=== PATIENT | female | born 1990 | race African-American/Black ===

== ENCOUNTER 2020-11-12 16:53 | Inpatient (IN) | payer MEDICAID, SELFPAY ==
[2020-11-12] VITALS (7 sets, daily range): BP systolic 114–130; BP diastolic 77–97; PULSE 82–124; RESP 16–18; TEMP 35.9–36.8; O2SAT 92–100; BMI 22.4; BMI 20.6
--- NOTE | 2020-11-12 17:38 | EKG12_ITS ---
Test Reason : Blood Pressure : / mmHG Vent. Rate : 096 BPM Atrial Rate : 096 BPM P-R Int : 124 ms QRS Dur : 078 ms QT Int : 358 ms P-R-T Axes : 041 064 059 degrees QTc Int : 452 ms Normal sinus rhythm Normal ECG Confirmed by MAY RUIZ, JAMILAH ([id number]), assistant editor CHARISSE MISHRA ([id number]) on 11/16/2020 10:03:27 AM Referred By: ELISE Confirmed By:JAMILAH OLVERA MD
--- NOTE | 2020-11-12 17:38 | CT_ITS ---
STUDY: CT ABDOMEN AND PELVIS WITH CONTRAST REASON FOR EXAM: Female, 30 years old. epigastric abdominal pain RADIATION DOSAGE (If Supplied By Facility): CTDIvol = ( 11.81 ) mGy, DLP = ( 351.05 ) mGycm TECHNIQUE: Transaxial images were obtained from the dome of the diaphragm to the symphysis pubis without oral contrast. ISOVUE 300 100 ML was administered. Sagittal and coronal images were reconstructed. Individualized dose optimization techniques were used for this CT. COMPARISON: None. FINDINGS: The visualized lung bases are unremarkable. The visualized portions of the heart are within normal limits. Liver is enlarged and diffusely fatty infiltrated without mass or bile duct dilatation.. Normal gallbladder and extrahepatic biliary system. Normal spleen. Pancreas is normal size. There are multiple tiny calcifications which may be consistent with chronic pancreatitis Normal bilateral adrenal glands. Normal right kidney. Normal left kidney. Concentric thickening of the elmore of stomach and duodenum consistent with nonspecific gastroduodenitis possibly due to peptic ulcer disease. Nonspecific ileus. No evidence for small bowel obstruction.. Minor diverticular changes of colon without evidence for acute diverticulitis. No evidence for acute appendicitis. Normal abdominal aorta. Normal inferior vena cava. Normal retroperitoneum. Incompletely distended thick-walled bladder likely of no significance. Cystic changes in the left ovary which may be further assessed with pelvic sonogram if indicated Small fat-containing left inguinal hernia.. Normal osseous structures. CT/Abdomen/Pelvis W IV Cont ONLY IMPRESSION: Enlarged fatty infiltrated liver. Findings consistent with nonspecific gastroduodenitis possibly due to peptic ulcer disease.'' Findings consistent with chronic pancreatitis without definitive evidence for acute pancreatitis Other findings as above Electronically Signed: Jitendra Kwong MD at 19:32 EDT , Service support ,
[2020-11-12] MEDS: 0.9% Normal Saline 1,000 ML 1000 ML IV (17:52)
[2020-11-12] MEDS: Ondansetron 4 MG/2 ML Vial IV (17:52)
[2020-11-12] MEDS: morphine 8 MG/ML Syringe 6 MG IV (17:53)
--- NOTE | 2020-11-12 18:12 | EX.ED.SAOD ---
HPI History of Present Illness Chief Complaint: Substance Abuse Informant: patient Associated Symptoms Associated Symptoms: Positive for vomiting* Narrative Narrative: Patient is a 30-year-old female presenting for concern for pancreatitis as well as for alcohol detox. Patient states earlier today she was at [facility] where she was medically cleared and went to [facility] for alcohol Detox. Patient had 2 vodka drinks today. Patient states she was told to come to our emergency room for detox because she is also complaining of abdominal pain that she associates with her pancreatitis. Patient states she gets chronic abdominal pain and this is what causes her to drink. She states she goes through binging where she will drink as a way to cope with the pain. She states it is likely that helps. Patient states she is been drinking shots of vodka daily for the past few days. She would not quantify exactly how much she drinks a day. She states she will then go a couple weeks without drinking and then binge again. Patient had associated nausea and vomiting but no blood in her vomit. She has had okay bowel movements with no black or blood in. She is never seen GI doctor. Patient says she does have a history of seizure. Patient is not sure if they were alcohol withdrawal seizures or another kind. She notes she is on Keppra daily. Patient did note that she recently had Covid but she does not currently have any symptoms associated with this. PFSH PFSH Medical History Alcohol abuse Anxiety Asthma Bipolar disorder Chronic pain GERD (gastroesophageal reflux disease) Marijuana smoker Pancreatitis Seizures Smoker Home Medications albuterol 1 - 2 mcg INHALATION PRN PRN 11/12/20 [History Last Taken 11/11/20] levetiracetam [Keppra] 500 mg PO BID 11/12/20 [History Last Taken 11/12/20] Allergy/AdvReac Type Severity Reaction Status Date / Time famotidine [From Pepcid] Allergy Other Verified 11/12/20 16:56 fentanyl Allergy Other Verified 11/12/20 16:56 fish oil Allergy Other Verified 11/12/20 16:56 haloperidol [From Haldol] Allergy Other Verified 11/12/20 16:56 nut - unspecified Allergy Anaphylaxis Verified 11/12/20 16:56 vitamin E (d-alpha Allergy Other Verified 11/12/20 16:56 tocopherol) Surgical History (Updated 11/12/20 @ 17:38 by Alanis Garcia) Hx of cholecystectomy Social History Smoking Status: Current every day smoker tobacco type: cigarettes ROS ROS ED Constitutional Constitutional ED: Denies chills or fever(s) Eyes Eyes: Denies change in vision ENT ENT ED: Denies ear pain or rhinorrhea Cardiovascular Cardiovascular: Denies chest pain Respiratory/Chest Respiratory/Chest: Denies cough or dyspnea Gastrointestinal Gastrointestinal: Reports abdominal pain, nausea and vomiting; Denies constipation or diarrhea Genitourinary Genitourinary ED: Denies dysuria Musculoskeletal Musculoskeletal: Denies arthralgias or myalgias Integumentary Denies rash Neurologic Neurologic: Denies headache(s) or weakness Psychiatric Psychiatric: Denies anxiety or depression EXAM Physical Exam Const Vital Signs: 11/12/20 16:56 11/12/20 19:00 Temperature 96.7 F L 97 F L Temperature Source Temporal Temporal Pulse Rate 124 H 100 Respiratory Rate 18 18 Blood Pressure 130/87 H 130/97 H Blood Pressure Mean 101 108 Pulse Ox 95 100 Oxygen Delivery Method Room Air Room Air Positive well nourished and well developed General Appearance ED: well developed HEENT Reports moist mucous membranes atraumatic Eyes PERRL and EOMs intact bilaterally Eyes Narrative: Mild periorbital edema noted Neck supple and no JVD Chest Wall inspection of chest normal Resp normal respiratory effort and clear to auscultation bilaterally Cardio regular rate, regular rhythm and no murmurs GI soft to palpation, non-distended and no masses Palpation: tender epigastric Back/Spine no CVA tenderness Extremity General Extremety ED: Negative for edema or tenderness General Extremity: Negative for edema Neuro oriented x3, CN's II-XII intact bilaterally and no sensory deficits noted Sensorium / Orientation: alert Psych mental status grossly normal and thought process normal Skin Lesions: no lesions Rashes: no rashes MDM MDM MDM Narrative Medical decision making narrative: Patient evaluated for worsening epigastric abdominal pain as well as alcohol dependency and desire for detox. She appears nontoxic. Vital signs are significant for tachycardic however patient does not appear to be in any significant distress. Patient is given IV fluids, Zofran and morphine with some symptom control. She has improvement of her tachycardia. Work-up does show leukopenia however her hemoglobin is normal. Her platelets are 157, normal. BMP is grossly normal. She does have an elevated AST with normal ALT. This is likely from her alcohol abuse. Her alkaline phosphatase is also mildly elevated at 166. Lipase is normal. CT of abdomen pelvis obtained which shows findings consistent with chronic pancreatitis but no acute pancreatitis. She does have nonspecific gastroduodenitis. Patient is given a GI cocktail, IV Protonix that she is allergic to Pepcid as well as oral oxycodone for her pain. Patient does have a significantly elevated alcohol level however patient does not appear to have any type of mental depression from this alcohol intoxication. She will be admitted for further management of her gastroduodenitis as well as evaluation for inpatient detox. Patient is hemodynamically stable for the [facility] floor at time of disposition. She is agreeable to this plan of care. Lab Data Attestation: I reviewed the patient's lab results. Labs: Laboratory Results - last 24 hr 11/12/20 11/12/20 11/12/20 17:50 17:50 17:50 WBC 3.4 L RBC 3.60 L Hgb 12.5 Hct 35.8 L MCV 99.4 H MCH 34.7 H MCHC 34.9 RDW Std Deviation 69.7 H RDW Coeff of Jessi 19.1 H Plt Count 157 MPV 8.9 Immature Gran % (Auto) 0.600 Neut % (Auto) 30.7 L Lymph % (Auto) 59.1 H [place] % (Auto) 7.8 Eos % (Auto) 0.6 Baso % (Auto) 1.2 H Absolute Neuts (auto) 1.0 L Absolute Lymphs (auto) 1.98 Nucleated RBC % 0.6 Platelet Estimate ADEQUATE RBC Morphology N CHROM Anisocytosis 1+ Macrocytosis 1+ Ovalocytes RARE Sodium 139 Potassium 3.2 L Chloride 99 Carbon Dioxide 26.0 Anion Gap 14 BUN 8 Creatinine 0.54 L Estim Creat Clear Calc 137.08 Est GFR (MDRD) Af Amer 170 Est GFR (MDRD) Non-Af 141 BUN/Creatinine Ratio 14.8 Glucose 90 Lactic Acid Cancelled Calcium 8.1 L Magnesium Total Bilirubin 0.60 AST 217 H ALT 53 Alkaline Phosphatase 166 H Total Protein 8.0 Albumin 3.6 Globulin 4.4 H Albumin/Globulin Ratio 0.8 L Lipase 82 Serum , Qual Urine Color Urine Clarity Urine pH Ur Specific [place] Urine Protein Urine Glucose (UA) Urine Ketones Urine Occult Blood Urine Nitrite Urine Bilirubin Urine Urobilinogen Ur Leukocyte Esterase Urine RBC Urine WBC Ur Squamous Epith Cells Urine Bacteria Urine Mucus Urine Opiates Screen Urine Methadone Screen Ur Barbiturates Screen Ur Phencyclidine Scrn Ur Amphetamines Screen U Methamphetamin-MDMA U Benzodiazepines Scrn Urine Cocaine Screen U Cannabinoids Screen Ur Drug Screen Comment Ethyl Alcohol 11/12/20 11/12/20 11/12/20 17:50 17:50 17:50 WBC RBC Hgb Hct MCV MCH MCHC RDW Std Deviation RDW Coeff of Jessi Plt Count MPV Immature Gran % (Auto) Neut % (Auto) Lymph % (Auto) [place] % (Auto) Eos % (Auto) Baso % (Auto) Absolute Neuts (auto) Absolute Lymphs (auto) Nucleated RBC % Platelet Estimate RBC Morphology Anisocytosis Macrocytosis Ovalocytes Sodium Potassium Chloride Carbon Dioxide Anion Gap BUN Creatinine Estim Creat Clear Calc Est GFR (MDRD) Af Amer Est GFR (MDRD) Non-Af BUN/Creatinine Ratio Glucose Lactic Acid Calcium Magnesium 1.7 Total Bilirubin AST ALT Alkaline Phosphatase Total Protein Albumin Globulin Albumin/Globulin Ratio Lipase Serum , Qual NEGATIVE Urine Color Urine Clarity Urine pH Ur Specific [place] Urine Protein Urine Glucose (UA) Urine Ketones Urine Occult Blood Urine Nitrite Urine Bilirubin Urine Urobilinogen Ur Leukocyte Esterase Urine RBC Urine WBC Ur Squamous Epith Cells Urine Bacteria Urine Mucus Urine Opiates Screen Urine Methadone Screen Ur Barbiturates Screen Ur Phencyclidine Scrn Ur Amphetamines Screen U Methamphetamin-MDMA U Benzodiazepines Scrn Urine Cocaine Screen U Cannabinoids Screen Ur Drug Screen Comment Ethyl Alcohol 557.0 H* 11/12/20 11/12/20 11/12/20 19:25 19:25 19:28 WBC RBC Hgb Hct MCV MCH MCHC RDW Std Deviation RDW Coeff of Jessi Plt Count MPV Immature Gran % (Auto) Neut % (Auto) Lymph % (Auto) [place] % (Auto) Eos % (Auto) Baso % (Auto) Absolute Neuts (auto) Absolute Lymphs (auto) Nucleated RBC % Platelet Estimate RBC Morphology Anisocytosis Macrocytosis Ovalocytes Sodium Potassium Chloride Carbon Dioxide Anion Gap BUN Creatinine Estim Creat Clear Calc Est GFR (MDRD) Af Amer Est GFR (MDRD) Non-Af BUN/Creatinine Ratio Glucose Lactic Acid 2.7 H* Calcium Magnesium Total Bilirubin AST ALT Alkaline Phosphatase Total Protein Albumin Globulin Albumin/Globulin Ratio Lipase Serum , Qual Urine Color Yellow Urine Clarity Sl. Cloudy Urine pH 6.5 Ur Specific [place] 1.015 Urine Protein 30 H Urine Glucose (UA) Normal Urine Ketones Negative Urine Occult Blood 25 H Urine Nitrite Positive H Urine Bilirubin 1 H Urine Urobilinogen 8 H Ur Leukocyte Esterase 100 H Urine RBC 0 SEEN Urine WBC 25-50 SEEN Ur Squamous Epith Cells 0-5 SEEN Urine Bacteria 3+ Urine Mucus 0 SEEN Urine Opiates Screen POSITIVE H Urine Methadone Screen NEGATIVE Ur Barbiturates Screen NEGATIVE Ur Phencyclidine Scrn NEGATIVE Ur Amphetamines Screen NEGATIVE U Methamphetamin-MDMA NEGATIVE U Benzodiazepines Scrn NEGATIVE Urine Cocaine Screen NEGATIVE U Cannabinoids Screen NEGATIVE Ur Drug Screen Comment Ethyl Alcohol Radiography Diagnostic Testing: Radiology Impression Abdomen/Pelvis CT 11/12/20 17:38 IMPRESSION: Enlarged fatty infiltrated liver. Findings consistent with nonspecific gastroduodenitis possibly due to peptic ulcer disease.'' Findings consistent with chronic pancreatitis without definitive evidence for acute pancreatitis Other findings as above Electronically Signed: Jitendra Kwong MD at 19:32 EDT , Service support , Rhythm Strip Rhythm Strip: Sinus Rhythm Rate: 96 Ectopy: None EKG Initial EKG: Attestation: I personally reviewed and interpreted this EKG as follows: Interpretation: Sinus Rhythm Comments: Normal sinus rhythm at a rate of 96 Normal axis Normal intervals Normal ST segments Discharge Plan Dx/Rx/DC Orders Clinical Impression: Alcohol abuse with intoxication, Gastroduodenitis Disposition Disposition: Acute Care Hospital [facility] Discharge Date/Time: 11/12/20 21:02
[2020-11-12 18:16] LABS: Absolute Lymphocyte Count 1.98 X10^3/uL (0.83-4.51); Basophil# 0.04 X10^3/uL; Basophil% 1.2 % (0-1); Eosinophil# 0.02 X10^3/uL; Eosinophils% 0.6 % (0-5); Hematocrit 35.8 % (37-47); Hemoglobin 12.5 g/dL (12.0-15.0); Lymphocyte # 1.98 X10^3/ul (0.83-4.51); Lymphocyte % 59.1 % (19-41); Mean Corp Hgb Conc 34.9 g/dL (32-36); Mean Corpuscular Hgb 34.7 pg (27.0-32.0); Mean Corpuscular Volume 99.4 fL (81-99); Mean Platelet Vol. 8.9 fl (6.2-12.0); Monocyte# 0.26 X10^3/uL; Monocyte% 7.8 % (0-10); NRBC Flagged by Analyzer 0.6 % (0-5); Neutrophil # 1.03 X10^3/uL (2.7-7.7); Neutrophil % 30.7 % (47-70); POSITIVE MORPHOLOGY YES; Platelet Count 157 K/mm3 (150-450); RBC Distribution Width CV 19.1 % (11.6-14.6); RBC Distribution Width SD 69.7 fl (35.1-43.9); White Blood Count 3.4 K/mm3 (4.4-11.0)
[2020-11-12 18:19] LABS: Differential Indicated SCAN CRITERIA MET
[2020-11-12 18:31] LABS: ALB/GLOB Ratio 0.8 RATIO (0.9-2.4); AST(SGOT) 217 U/L (15-37); Alanine Aminotransfer ALT/SGPT 53 U/L (13-56); Albumin, Serum 3.6 g/dL (3.2-5.0); Alkaline Phosphatase 166 U/L (45-117); Anion Gap 14 (5-15); BUN 8 mg/dL (7-18); BUN/Creat Ratio 14.8 RATIO (10-20); Calcium,Total 8.1 mg/dL (8.5-10.1); Chloride 99 mmol/L (98-107); Creatinine, Serum 0.54 mg/dL (0.55-1.02); EST Glomerular Filtration Rate 141 mL/min (>60); Est Glom Filt Rate - Afr Amer 170 mL/min (>60); Estimated Creatinine Clearance 137.08 ml/min; Globulin 4.4 g/dL (2.2-4.2); Glucose 90 mg/dL (74-106); Lipase 82 U/L (73-393); Potassium 3.2 mmol/L (3.5-5.1); Sodium Level 139 mmol/L (136-145)
[2020-11-12 18:41] LABS: Anisocytosis 1+; Macrocytosis 1+; Platelet Estimate ADEQUATE (ADEQ); Red Cell Morphology N CHROM NORMAL (NORM C&C)
[2020-11-12 18:42] LABS: Ovalocyte RARE
[2020-11-12 18:50] LABS: Internal QC Validated? YES +Cl - CLEAR BKGD; Pregnancy, Serum, hCG Quali. NEGATIVE Negative
[2020-11-12] MEDS: Mag Hydrox/Al Hydrox/Simeth 30 ML UDC PO (19:53)
--- NOTE | 2020-11-12 19:59 | PCM.HP.STD ---
HPI - General General Date of Admission: 11/12/20 Date of Service: 11/12/20 Chief Complaint: Abdominal pain HPI Narrative DARCY CABRERA, is a 30 F who presents abdominal pain ongoing for 3 to 4 days. Patient admits to drinking about two bottles of vodka every day because of abdominal pain. She has history of chronic pancreatitis. She admits to nausea and vomiting but no diarrhea. She denied any hematochezia or hematemesis. She denied any fever or chills. She denied any sick contacts. Her vitals in the ED were stable. WBC count was 3.4, hemoglobin was 12.5, platelet 157. Sodium 139, potassium 3.2, chloride 99, bicarbonate 26, BUN eight, creatinine 0.54, lactic acid 2.7, corrected calcium is 8.42. Albumin 3.6, magnesium 1.7, lipase 82, test negative. Admitting alcohol level is 557.0, urine tox positive for opiates CT abdomen pelvis shows enlarged liver, diffusely infiltrative effect, normal gallbladder, spleen and pancreas. Multiple tiny calcifications in pancreas suggestive of pancreatitis. Concentric thickening of the elmore of stomach and duodenum consistent with nonspecific gastroduodenitis possibly due to peptic ulcer disease PFSH Medical History Alcohol abuse Anxiety Asthma Bipolar disorder Chronic pain GERD (gastroesophageal reflux disease) Marijuana smoker Pancreatitis Seizures Smoker Home Medications albuterol 1 - 2 mcg INHALATION PRN PRN 11/12/20 [History Last Taken 11/11/20] levetiracetam [Keppra] 500 mg PO BID 11/12/20 [History Last Taken 11/12/20] Allergy/AdvReac Type Severity Reaction Status Date / Time famotidine [From Pepcid] Allergy Other Verified 11/12/20 16:56 fentanyl Allergy Other Verified 11/12/20 16:56 fish oil Allergy Other Verified 11/12/20 16:56 haloperidol [From Haldol] Allergy Other Verified 11/12/20 16:56 nut - unspecified Allergy Anaphylaxis Verified 11/12/20 16:56 vitamin E (d-alpha Allergy Other Verified 11/12/20 16:56 tocopherol) Family History (Updated 11/12/20 @ 22:[address] Norma Santoro MD) Mother No problems noted. no significant family history Surgical History (Updated 11/12/20 @ 22:[address] Norma Santoro MD) H/O section Hx of cholecystectomy Social History (Updated 11/12/20 @ 22:[address] Norma Santoro MD) number of children: 3 Smoking Status: Current every day smoker tobacco type: cigarettes alcohol intake: current details: see hpi substance use type: does not use ROS ROS Narrative Constitutional: Reports: Malaise, Weakness, Fatigue. Denies: Anorexia, Chills, Fever, Night Sweats, Weight Change Eyes: Denies: Blurred vision, Cataracts, Conjunctivae Inflammation, Pain, Redness, Vision Change HEENT: Denies: Difficulty Hearing, Difficulty Swallowing, Head Aches, Hearing Changes, Sinus Congestion, Sinus Drainage Cardiovascular: Denies: Chest Pain, Orthopnea, Palpitations Respiratory: Denies: Cough, Shortness of breath at rest, Sputum production Gastrointestinal: See HPI Genitourinary: Denies: Dysuria Musculoskeletal: Denies: Joint Pain, Joint stiffness, Joint swelling, Joint Tenderness Skin: Denies: Rash, Wounds Neurological: Denies: Numbness, Tingling, Focal weakness Vital Signs Vital Signs Vital Signs: 11/12/20 16:56 Temperature 96.7 F L Temperature Source Temporal Pulse Rate 124 H Respiratory Rate 18 Blood Pressure 130/87 H Blood Pressure Mean 101 Pulse Ox 95 Oxygen Delivery Method Room Air Weight Weight: 61.235 kg Body Mass Index (BMI) 22.4 Physical Exam Narrative Physical exam: General: Alert, Oriented x3, Cooperative, in mild distress, appears unwell HEENT: Atraumatic Oral: Dry mucosa Neck: Supple Lungs: Clear to auscultation Cardiovascular: HS I+II, regular, no murmurs Abdomen: Bowel Sounds Present, Soft, tenderness in epigastric region, no palpable organs Extremities: No edema Skin: No rashes, No breakdown Neurological: Grossly intact Psych/Mental Status: Appropriate Results Lab / Micro Data Result Diagrams: 11/12/20 17:50 11/12/20 17:50 Labs: Laboratory Results - last 24 hr 11/12/20 17:50: WBC 3.4 L, RBC 3.60 L, Hgb 12.5, Hct 35.8 L, MCV 99.4 H, MCH 34.7 H, MCHC 34.9, RDW Std Deviation 69.7 H, RDW Coeff of Jessi 19.1 H, Plt Count 157, MPV 8.9, Immature Gran % (Auto) 0.600, Neut % (Auto) 30.7 L, Lymph % (Auto) 59.1 H, [place] % (Auto) 7.8, Eos % (Auto) 0.6, Baso % (Auto) 1.2 H, Absolute Neuts (auto) 1.0 L, Absolute Lymphs (auto) 1.98, Nucleated RBC % 0.6, Platelet Estimate ADEQUATE, RBC Morphology N CHROM, Anisocytosis 1+, Macrocytosis 1+, Ovalocytes RARE 11/12/20 17:50: Sodium 139, Potassium 3.2 L, Chloride 99, Carbon Dioxide 26.0, Anion Gap 14, BUN 8, Creatinine 0.54 L, Estim Creat Clear Calc 137.08, Est GFR (MDRD) Af Amer 170, Est GFR (MDRD) Non-Af 141, BUN/Creatinine Ratio 14.8, Glucose 90, Calcium 8.1 L, Total Bilirubin 0.60, AST 217 H, ALT 53, Alkaline Phosphatase 166 H, Total Protein 8.0, Albumin 3.6, Globulin 4.4 H, Albumin/Globulin Ratio 0.8 L, Lipase 82 11/12/20 17:50: Lactic Acid Cancelled 11/12/20 17:50: Serum , Qual NEGATIVE 11/12/20 17:50: Ethyl Alcohol 557.0 H* 11/12/20 19:25: Ur Drug Screen Comment Radiology Impression Abdomen/Pelvis CT 11/12/20 17:38 IMPRESSION: Enlarged fatty infiltrated liver. Findings consistent with nonspecific gastroduodenitis possibly due to peptic ulcer disease.'' Findings consistent with chronic pancreatitis without definitive evidence for acute pancreatitis Other findings as above Electronically Signed: Jitendra Kwong MD at 19:32 EDT , Service support , Assessment & Plan Assessment/Plan (1) Alcohol abuse with intoxication: (2) Gastroduodenitis: (3) Hypokalemia: (4) Hypomagnesemia: PLAN: 1. Acute abdominal pain secondary to gastroduodenitis in a patient with history of chronic pancreatitis/chronic alcohol use disorder Gastroduodenitis seen on CT of the abdomen and pelvis Likely etiology for gastroenteritis is alcohol-related Would start on PPI, Mylanta as scheduled, sucralfate, oxycodone prn 2. Hypokalemia/hypomagnesemia, replaced, recheck in a.m. 3. Chronic alcoholism, admitting alcohol level is 557, patient is interested in medical stabilization We will monitor on the alcohol withdrawal protocol, 180 social work consult 4. Seizure disorder, continue Keppra 5. Nicotine dependence, on replacement Charges/Coding Visit Charges Inpatient E&M: 65876 Init Hosp L3
[2020-11-12] MEDS: oxyCODONE 5 MG Tablet PO (20:15)
[2020-11-12 20:25] LABS: Mucous, Urine 0 SEEN /hpf (<or=2+); Red Blood Cells-Urine 0 SEEN /hpf (0-5)
[2020-11-12 20:37] LABS: Lactic Acid 2.7 mmol/L (0.4-1.9)
[2020-11-12 20:37] LABS: Amphetamine Urine VISTA NEGATIVE (<1000 ng/mL); Barbiturate Urine VISTA NEGATIVE (< 200 ng/mL); Benzodiazepine Urine VISTA NEGATIVE (< 200 ng/mL); Cocaine Urine VISTA NEGATIVE (< 300 ng/mL); Ecstacy Urine VISTA NEGATIVE (< 500 ng/mL); Methadone Urine VISTA NEGATIVE (< 300 ng/mL); PCP Urine VISTA NEGATIVE (< 25 ng/mL); THC Urine VISTA NEGATIVE (< 50 ng/mL); Vista UDS pH Range 6
[2020-11-12 20:38] LABS: Color, Urine Yellow (Yellow); Glucose, Dipstick Normal (Normal); Ketone-Dipstick Negative (Negative); Leukocyte Esterase-Dipstick 100 /ul (Negative); Nitrite-Dipstick Positive (Negative); Occult Blood-Urine 25 /ul (Negative); Protein-Dipstick 30 mg/dl (Negative); Specific Gravity, Urine 1.015 (1.002-1.030); Urine Clarity Sl. Cloudy (Clear); Urine Urobilinogen 8 mg/dl (Normal); Urine pH 6.5 (5.0 - 8.0)
[2020-11-12 20:42] LABS: Urine Bilirubin Dipstick 1 mg/dL (Negative)
[2020-11-12 20:45] LABS: Bacteria 3+ /hpf (None Seen); Squamous Epithelial Cells - UA 0-5 SEEN /hpf (5-10); White Blood Cells 25-50 SEEN /hpf (0-5)
[2020-11-12 20:45] LABS: Magnesium 1.7 mg/dL (1.6-2.6)
[2020-11-12] MEDS: Potassium Chloride Oral Tablet 20 MEQ 60 MEQ PO (22:09)
[2020-11-12] MEDS: Phenobarbital 32.4 MG Tablet 64.8 MG PO (22:10)
[2020-11-12] MEDS: levETIRAcetam 500 MG Tablet PO (22:10)
[2020-11-12] MEDS: hydrOXYzine PAM 25 MG Capsule 50 MG PO (22:42)
[2020-11-12] MEDS: Albuterol 2.5 MG/3 ML VIAL.NEB. INHALATION (22:50)
[2020-11-12 23:30] LABS: Reflex Lactate? Y
[2020-11-13] VITALS (7 sets, daily range): BP systolic 113–139; BP diastolic 56–97; PULSE 76–88; RESP 16–18; TEMP 37.1–37.5; O2SAT 96–100
[2020-11-13] MEDS: 0.9% Normal Saline 1,000 ML 125 ML IV ×2 (02:06→09:50)
[2020-11-13] MEDS: Phenobarbital 32.4 MG Tablet 64.8 MG PO ×6 (02:11→22:02)
[2020-11-13] MEDS: oxyCODONE 5 MG Tablet PO ×3 (02:14→14:11)
[2020-11-13] MEDS: Mag Hydrox/Al Hydrox/Simeth 30 ML UDC PO (05:42)
[2020-11-13] MEDS: Gabapentin 300 MG Capsule PO (05:43)
[2020-11-13 06:11] LABS: Absolute Lymphocyte Count 1.49 X10^3/uL (0.83-4.51); Absolute Neutrophil Count 0.6 X10^3/uL (2.0-7.7); Basophil# 0.01 X10^3/uL; Basophil% 0.4 % (0-1); Eosinophil# 0.03 X10^3/uL; Eosinophils% 1.3 % (0-5); Hematocrit 30.9 % (37-47); Hemoglobin 10.3 g/dL (12.0-15.0); Lymphocyte # 1.49 X10^3/ul (0.83-4.51); Lymphocyte % 63.7 % (19-41); Mean Corp Hgb Conc 33.3 g/dL (32-36); Mean Corpuscular Hgb 34.3 pg (27.0-32.0); Mean Platelet Vol. 9.4 fl (6.2-12.0); Monocyte# 0.19 X10^3/uL; Monocyte% 8.1 % (0-10); NRBC Flagged by Analyzer 0 % (0-5); Neutrophil # 0.62 X10^3/uL (2.7-7.7); Neutrophil % 26.5 % (47-70); POSITIVE DIFFERENTIAL YES; POSITIVE MORPHOLOGY YES; Platelet Count 114 K/mm3 (150-450); RBC Distribution Width CV 19.2 % (11.6-14.6); RBC Distribution Width SD 72.6 fl (35.1-43.9); White Blood Count 2.3 K/mm3 (4.4-11.0)
[2020-11-13 06:17] LABS: Differential Indicated SCAN CRITERIA MET
[2020-11-13 06:47] LABS: ALB/GLOB Ratio 0.8 RATIO (0.9-2.4); AST(SGOT) 389 U/L (15-37); Alanine Aminotransfer ALT/SGPT 68 U/L (13-56); Alkaline Phosphatase 149 U/L (45-117); Anion Gap 7 (5-15); BUN 6 mg/dL (7-18); BUN/Creat Ratio 12.7 RATIO (10-20); Calcium,Total 7.2 mg/dL (8.5-10.1); Chloride 107 mmol/L (98-107); Creatinine, Serum 0.47 mg/dL (0.55-1.02); EST Glomerular Filtration Rate 164 mL/min (>60); Est Glom Filt Rate - Afr Amer 198 mL/min (>60); Estimated Creatinine Clearance 155.28 ml/min; Globulin 3.7 g/dL (2.2-4.2); Glucose 88 mg/dL (74-106); Potassium 3.9 mmol/L (3.5-5.1); Protein, Total 6.7 g/dL (6.4-8.2); Sodium Level 140 mmol/L (136-145)
[2020-11-13] MEDS: Thiamine Hydrochloride 100 MG Tablet PO (08:44)
[2020-11-13] MEDS: Folic Acid 1 MG Tablet PO (08:44)
[2020-11-13] MEDS: levETIRAcetam 500 MG Tablet PO ×2 (08:44→20:49)
[2020-11-13] MEDS: Sucralfate 1 GM Tablet PO ×3 (08:44→20:49)
[2020-11-13] MEDS: hydrOXYzine PAM 25 MG Capsule 50 MG PO ×3 (08:48→18:14)
[2020-11-13] MEDS: Pantoprazole Sodium 40 MG Tablet PO ×2 (08:48→20:49)
--- NOTE | 2020-11-13 09:38 | NURSING ---
At approximately an hour ago, pt asked for her pain medication. This nurse made pt aware that it was discontinued. Pt became anxous and angry. this nurse offered Tylenol. Pt stated, that dont work. Offered Bentyl, pt refused. Pt states she had one episode of diarrhea and this nurse offered imodium, again, pt refused.
--- NOTE | 2020-11-13 10:15 | CASEMGMT ---
RN TIMMY Face to Face with patient for initial transition planning/care coordination assessment. RN CM introduced self and role at [facility]. Patient lying in bed, alert and oriented. Patient willing to participate in assessment and is able to answer all questions appropriately. Care providers, pharmacy, and demographics verified. Patient wishes to discharge home, denies need for home health at this time. Patient states she has no further needs or concerns at this time. CM to follow for discharge planning needs that may arise. PCP: Peter Gómez Specialists: none Preferred Pharmacy: [facility] in [place] Insurance: [facility] Prescription Benefit: yes Living Will/HPOA: none LNOK: fiance Living Arrangements: Patient lives with giovanni and 2 son (12yo and 9yo) in a 2nd floor apartment. Patient is able to ambulate stairs. Transportation: self/fiance DME/HHC: patient denies DME or previous HHC. Patient states she smokes 1/2 PPD of cigarettes and only went on a binge with vodka 2 5th yesterday to cope with pain. Denies drinking previously . Patient declined resources at this time. Disposition Plan: Patient to discharge home with family support and follow-up plans in place. Alanis DUQUE, RN, CM
--- NOTE | 2020-11-13 12:14 | PN.HOSP_ITS ---
Documented by User: Kell Mir NP-C 11/13/20 12:28 Subjective Subjective Patient seen and examined. Patient states that she has having epigastric pain continued a.m. states acetaminophen is not working to take care of pain. Patient does not have other complaints at this time Objective Data Objective Data Vital Signs: Vital Signs Temp Pulse Resp BP Pulse Ox 99.5 F H 88 18 139/82 H 99 11/13/20 08:39 11/13/20 08:39 11/13/20 08:39 11/13/20 08:39 11/13/20 08:39 Oxygen Delivery Method Room Air Weight: 123 lb 14.397 oz Body Mass Index (BMI) 20.6 Intake & Output: Intake and Output for Last 24 Hours 11/11/20 11/12/20 11/13/20 23:59 23:59 23:59 Intake Total 1035 / 1035 1320.67 / 1320.67 Balance 1035 / 1035 1320.67 / 1320.67 Lab / Micro Data Result Diagrams: 11/13/20 05:45 11/13/20 05:45 Labs: Laboratory Results - last 24 hr 11/12/20 17:50: WBC 3.4 L, RBC 3.60 L, Hgb 12.5, Hct 35.8 L, MCV 99.4 H, MCH 34.7 H, MCHC 34.9, RDW Std Deviation 69.7 H, RDW Coeff of Jessi 19.1 H, Plt Count 157, MPV 8.9, Immature Gran % (Auto) 0.600, Neut % (Auto) 30.7 L, Lymph % (Auto) 59.1 H, Mathews % (Auto) 7.8, Eos % (Auto) 0.6, Baso % (Auto) 1.2 H, Absolute Neuts (auto) 1.0 L, Absolute Lymphs (auto) 1.98, Nucleated RBC % 0.6, Platelet Estimate ADEQUATE, RBC Morphology N CHROM, Anisocytosis 1+, Macrocytosis 1+, Ovalocytes RARE 11/12/20 17:50: Sodium 139, Potassium 3.2 L, Chloride 99, Carbon Dioxide 26.0, Anion Gap 14, BUN 8, Creatinine 0.54 L, Estim Creat Clear Calc 137.08, Est GFR (MDRD) Af Amer 170, Est GFR (MDRD) Non-Af 141, BUN/Creatinine Ratio 14.8, Glucose 90, Calcium 8.1 L, Total Bilirubin 0.60, AST 217 H, ALT 53, Alkaline Phosphatase 166 H, Total Protein 8.0, Albumin 3.6, Globulin 4.4 H, Albumin/Globulin Ratio 0.8 L, Lipase 82 11/12/20 17:50: Lactic Acid Cancelled 11/12/20 17:50: Serum , Qual NEGATIVE 11/12/20 17:50: Ethyl Alcohol 557.0 H* 11/12/20 17:50: Magnesium 1.7 11/12/20 19:25: Urine Opiates Screen POSITIVE H, Urine Methadone Screen NEGATIVE, Ur Barbiturates Screen NEGATIVE, Ur Phencyclidine Scrn NEGATIVE, Ur Amphetamines Screen NEGATIVE, U Methamphetamin-MDMA NEGATIVE, U Benzodiazepines Scrn NEGATIVE, Urine Cocaine Screen NEGATIVE, U Cannabinoids Screen NEGATIVE, Ur Drug Screen Comment 11/12/20 19:25: Urine Color Yellow, Urine Clarity Sl. Cloudy, Urine pH 6.5, Ur Specific [place] 1.015, Urine Protein 30 H, Urine Glucose (UA) Normal, Urine Ketones Negative, Urine Occult Blood 25 H, Urine Nitrite Positive H, Urine Bilirubin 1 H, Urine Urobilinogen 8 H, Ur Leukocyte Esterase 100 H, Urine RBC 0 SEEN, Urine WBC 25-50 SEEN, Ur Squamous Epith Cells 0-5 SEEN, Urine Bacteria 3+, Urine Mucus 0 SEEN 11/12/20 19:28: Lactic Acid 2.7 H* 11/12/20 23:51: Lactic Acid 3.0 H* 11/13/20 05:45: WBC 2.3 L, RBC 3.00 L, Hgb 10.3 L, Hct 30.9 L, MCV 103.0 H, MCH 34.3 H, MCHC 33.3, RDW Std Deviation 72.6 H, RDW Coeff of Jessi 19.2 H, Plt Count 114 L, MPV 9.4, Immature Gran % (Auto) 0.000, Neut % (Auto) 26.5 L, Lymph % (Auto) 63.7 H, Mathews % (Auto) 8.1, Eos % (Auto) 1.3, Baso % (Auto) 0.4, Absolute Neuts (auto) 0.6 L, Absolute Lymphs (auto) 1.49, Nucleated RBC % 0 11/13/20 05:45: Sodium 140, Potassium 3.9, Chloride 107, Carbon Dioxide 26.0, Anion Gap 7, BUN 6 L, Creatinine 0.47 L, Estim Creat Clear Calc 155.28, Est GFR (MDRD) Af Amer 198, Est GFR (MDRD) Non-Af 164, BUN/Creatinine Ratio 12.7, Glucose 88, Calcium 7.2 L, Phosphorus 2.0 L, Magnesium 2.0, Total Bilirubin 0.70, AST 389 H, ALT 68 H, Alkaline Phosphatase 149 H, Total Protein 6.7, Album in 3.0 L, Globulin 3.7, Albumin/Globulin Ratio 0.8 L Micro: Microbiology 11/12/20 21:55 Mucosa - Nose SARS-CoV-2 Antigen (Rapid) - Final Radiography Diagnostic Testing: Radiology Impression Abdomen/Pelvis CT 11/12/20 17:38 IMPRESSION: Enlarged fatty infiltrated liver. Findings consistent with nonspecific gastroduodenitis possibly due to peptic ulcer disease.'' Findings consistent with chronic pancreatitis without definitive evidence for acute pancreatitis Other findings as above Electronically Signed: Jitendra Kwong MD at 19:32 EDT , Service support , Rhythm Strip Rhythm Strip: Sinus Rhythm Rate: 96 Ectopy: None Physical Exam Const alert and oriented x3 HEENT normocephalic and head/scalp atraumatic Eyes conjunctivae normal and no scleral icterus Neck full ROM, supple and no JVD Chest inspection of chest normal and palpation of chest normal Resp normal respiratory effort, normal air movement and clear to auscultation bilaterally Cardio regular rate, regular rhythm, S1 normal heart sound and S2 normal heart sound GI normal to inspection, nondistended, normoactive bowel sounds Auscultation: normoactive bowel sounds Palpation: tender epigastric (Chronic pancreatitis) Back/Spine normal ROM Extremity normal to inspection, full ROM, normal capillary refill and no clubbing, cyanosis or edema Skin no rashes or lesions noted, no wounds and skin turgor normal Neuro oriented x3, moves all extremities, no focal motor deficits and no sensory deficits noted Psych mental status grossly normal and thought process normal Attitude: agitated Assessment & Plan Assessment/Plan (1) Alcohol abuse with intoxication: (2) Gastroduodenitis: PLAN: 1.Gastroduodenitis -Likely secondary to chronic alcoholism -Continue Carafate, Protonix, milk of mag -As needed oxycodone along with Tylenol ordered for pain 2. Chronic alcoholism with desire for detoxification -Phenobarb taper ordered along with supportive medications -Continue CIWA monitoring -Case management consulted for coordination with 180 3. Hypokalemia/hypomagnesemia -Resolved, potassium 3.9, magnesium 2.0 -Daily BMP ordered 4. Seizures -Continue Keppra 5. Tobacco abuse -NicoDerm ordered daily DVT prophylaxis-not indicated, encourage ambulation This patient was seen by JUANA Mathis under the supervision of Dr. Perez. Documented by User: Dr. Michael Perez, 11/13/20 13:36 Subjective Subjective Still with epigastric abdominal pain. States that she has had a history of pancreatitis for several years. Patient is status post cholecystectomy. She states that she drinks alcohol periodically not daily. But is feeling that she is going through alcohol withdrawal today. States that she drinks to help with her pancreatitis but actually seems to make it worse. Objective Data Lab / Micro Data Result Diagrams: 11/13/20 05:45 11/13/20 05:45 Physical Exam Const alert Constitutional Narrative: Uncomfortable. Afebrile. HEENT normocephalic Head and Scalp: normal to inspection and atraumatic Chest inspection of chest normal, palpation of chest normal, inspection of breasts normal and palpation of breasts normal Resp normal respiratory effort, normal air movement, no retractions and no use of accessory muscles Cardio regular rate, regular rhythm, S1 normal heart sound and S2 normal heart sound GI GI Narrative: Epigastric tenderness. Normal bowel sounds. Assessment & Plan Assessment/Plan (1) Alcohol abuse with intoxication: (2) Gastroduodenitis: PLAN: 1. pancreatitis: Chronic due to alcohol. Discussed with the patient about utilizing nonnarcotics with nonnarcotics. Given the patient's propensity for alcoholism. Will have patient on oxycodone as needed but also focus on nonnarcotics. 2. Alcohol abuse: Patient is tremulous. Continue with phenobarbital taper. Addiction medicine to see and facilitate further outpatient treatment. Charges/Coding Visit Charges Inpatient E&M: 68693 Subs Hosp L2
--- NOTE | 2020-11-13 12:24 | ADDICTION ---
This insurance writer met with PT to conduct ASAM, MSE, DUDIT assessments and to plan for d/c. All assessments completed. PT declined d/c planning noting that she will follow up if she feels that she needs it. This insurance writer encouraged PT to schedule an appointment but PT declined again. Clinician will try again tomorrow.
[2020-11-13] MEDS: oxyCODONE 5 MG Tablet 10 MG PO (20:46)
[2020-11-13] MEDS: traZODone 100 MG Tablet PO (20:49)
[2020-11-14 02:00] VITALS: BP 111/76; PULSE 65; RESP 16; TEMP 36.6; O2SAT 98
[2020-11-14] MEDS: Phenobarbital 32.4 MG Tablet 64.8 MG PO ×6 (02:00→22:07)
[2020-11-14] MEDS: oxyCODONE 5 MG Tablet 10 MG PO ×5 (05:24→22:13)
[2020-11-14] MEDS: hydrOXYzine PAM 25 MG Capsule 50 MG PO ×4 (06:55→20:30)
[2020-11-14] MEDS: Folic Acid 1 MG Tablet PO (08:39)
[2020-11-14] MEDS: levETIRAcetam 500 MG Tablet PO ×2 (08:39→22:08)
[2020-11-14] MEDS: Thiamine Hydrochloride 100 MG Tablet PO (08:39)
[2020-11-14] MEDS: Pantoprazole Sodium 40 MG Tablet PO ×2 (08:40→22:09)
[2020-11-14] MEDS: Loperamide 2 MG Capsule PO (08:42)
[2020-11-14] MEDS: Dicyclomine 10 MG Capsule 20 MG PO ×3 (08:42→22:08)
[2020-11-14 09:03] VITALS: BP 113/78; PULSE 80; RESP 16; TEMP 36.6; O2SAT 100
--- NOTE | 2020-11-14 09:24 | US_ITS ---
EXAM: US ABDOMEN LIMITED, RIGHT UPPER QUADRANT CLINICAL INDICATION: pancreatitis TECHNIQUE: Real-time ultrasound of the right upper quadrant with image documentation. This report was created using [employer] report generation technology. COMPARISON: CT 11/12/2020 FINDINGS: LIVER: Increased echogenicity of the liver is nonspecific but most commonly associated with hepatic steatosis. The liver is enlarged measuring 21 cm. GALLBLADDER: Cholecystectomy. COMMON BILE DUCT: Unremarkable as visualized. The proximal common bile duct is within normal limits for the patient''s age. PANCREAS: Small heterogeneous pancreas with multiple calcifications correlating to chronic pancreatitis evident on prior CT. No pancreatic ductal dilatation. RIGHT KIDNEY: Unremarkable. There is no hydronephrosis. No shadowing calculus. No focal lesion or perinephric collection is demonstrated. US/Abdomen Limited IMPRESSION: 1. Increased echogenicity of the liver is nonspecific but most commonly associated with hepatic steatosis. Hepatomegaly. 2. Small heterogeneous pancreas with multiple calcifications correlating to chronic pancreatitis evident on prior CT. Electronically Signed: Brad Terry MD ([place]) at 14:18 EDT , Service support ,
[2020-11-14] MEDS: Sucralfate 1 GM Tablet PO ×2 (12:10→22:08)
--- NOTE | 2020-11-14 12:18 | PN_ITS ---
Documented by User: Kell Mir NP-C 11/14/20 13:19 Subjective Subjective Patient seen and examined. Patient states that she is continuing to have diarrhea but is utilizing as needed medications including Bentyl and Imodium. Patient continues to complain about epigastric abdominal pain stating that ox ycodone has improved her symptoms but they are still there is often oxycodone does not last long enough between doses. Objective Data Objective Data Vital Signs: Vital Signs Temp Pulse Resp BP Pulse Ox 97.8 F 80 16 113/78 100 11/14/20 09:03 11/14/20 09:03 11/14/20 09:03 11/14/20 09:03 11/14/20 09:03 Oxygen Delivery Method Room Air Weight: 123 lb 14.397 oz Body Mass Index (BMI) 20.6 Intake & Output: Intake and Output for Last 24 Hours 11/12/20 11/13/20 11/14/20 23:59 23:59 23:59 Intake Total 1035 / 1035 3270.67 / 3270.67 100 / 100 Balance 1035 / 1035 3270.67 / 3270.67 100 / 100 Medical Nutrition Assessment Dietitian: Nutrition Therapy Diagnosis Start: 11/13/20 12:27 Freq: Status: Active Protocol: Document 11/13/20 12:46 SLA (Rec: 11/13/20 12:47 SLA [id number]) Nutrition Malnutrition Evidence of Malnutrition Exists Yes Malnutrition (severe): Acute Illness/Injury Evidenced By Suboptimal Energy Intake ( Severe),Weight Loss (Severe) Clinical Problem Acute Disease or Injury Related Malnutrition Etiology related to acute illness Signs/Symptoms as evidenced by <50% po intake x 4-5 days prior to admission and 8.3% wt loss x 3 weeks. Status Active Problem Recommendation Dietitian Recommendations/Changes Will provide ensure enlive w/ meals for increased nutrition if consumed. Lab / Micro Data Result Diagrams: 11/13/20 05:45 11/14/20 12:45 Micro: Microbiology 11/12/20 21:55 Mucosa - Nose SARS-CoV-2 Antigen (Rapid) - Final Rhythm Strip Rhythm Strip: Sinus Rhythm Rate: 96 Ectopy: None Physical Exam Const alert and oriented x3 HEENT normocephalic and head/scalp atraumatic Eyes conjunctivae normal and no scleral icterus Neck full ROM, supple and no JVD Chest inspection of chest normal, palpation of chest normal, inspection of breasts normal and palpation of breasts normal Resp normal respiratory effort, normal air movement, no retractions, no use of accessory muscles and clear to auscultation bilaterally Cardio regular rate, regular rhythm, S1 normal heart sound and S2 normal heart sound GI normal to inspection, nondistended, normoactive bowel sounds Auscultation: normoactive bowel sounds Palpation: tender epigastric (Chronic pancreatitis) Back/Spine normal ROM Extremity normal to inspection, full ROM, normal capillary refill and no clubbing, cyanosis or edema Skin no rashes or lesions noted, no wounds and skin turgor normal Neuro oriented x3, moves all extremities, no focal motor deficits and no sensory deficits noted Psych mental status grossly normal and thought process normal Attitude: agitated Assessment & Plan Assessment/Plan (1) Alcohol abuse with intoxication: (2) Gastroduodenitis: PLAN: 1.Gastroduodenitis -Likely secondary to chronic alcoholism -Continue Carafate, Protonix, milk of mag -Increase as needed oxycodone from every 6 to every 4 hours along with Tylenol ordered for pain -Abdominal ultrasound ordered for evaluation of pancreatitis due to patient's history of alcoholism and history of pancreatitis in the past 2. Chronic alcoholism with desire for detoxification -Phenobarb taper ordered along with supportive medications -Continue CIWA monitoring -Case management consulted for coordination with 180 3. Hypokalemia/hypomagnesemia -Resolved, potassium 4.6 4. Seizures -Continue Keppra 5. Tobacco abuse -NicoDerm ordered daily DVT prophylaxis-not indicated, encourage ambulation This patient was seen by JUANA Mathis under the supervision of Dr. Rocio morin. Documented by User: Dr. Michael ePrez DO 11/14/20 14:08 Objective Data Lab / Micro Data Result Diagrams: 11/13/20 05:45 11/14/20 12:45 Charges/Coding Addendum Addendum: Patient seen and examined independently. Data reviewed. I agree with the above note by the nurse practitioner. Patient still complaining of abdominal pain. States that she was hospitalized for 2 weeks at some point at [facility]. Patient that she was on pancreatitis and had an NG tube to give her nutrition. No acute stress and afebrile. Heart regular rate and rhythm plus S1-S2 without murmurs Or rubs. Lungs are clear to auscultation bilaterally. Abdomen is tender in epigastrium. Assessment and plan 1. Pancreatitis Reviewed limited records available from [facility]. Just from November 26 and . Patient stated she was hospitalized for 2 weeks. Patient has evidence of chroni c pancreatitis. Patient recently had a miscarriage 2 weeks ago but was hospitalized for just a day. Patient has no history of endometriosis. 2. Alcohol abuse: continue phenobarb. Plan is to follow up with AA. Visit Charges Inpatient E&M: 29920 Subs Hosp L2
[2020-11-14 13:18] LABS: Anion Gap 6 (5-15); BUN 5 mg/dL (7-18); BUN/Creat Ratio 7.9 RATIO (10-20); Calcium,Total 8.6 mg/dL (8.5-10.1); Chloride 103 mmol/L (98-107); Creatinine, Serum 0.63 mg/dL (0.55-1.02); EST Glomerular Filtration Rate 117 mL/min (>60); Est Glom Filt Rate - Afr Amer 142 mL/min (>60); Estimated Creatinine Clearance 115.84 ml/min; Glucose 92 mg/dL (74-106); Potassium 4.6 mmol/L (3.5-5.1); Sodium Level 135 mmol/L (136-145)
[2020-11-14 14:27] VITALS: BP 116/84; PULSE 76; RESP 16; TEMP 37.3; O2SAT 100
[2020-11-14 20:26] VITALS: BP 123/99; PULSE 83; RESP 18; TEMP 36.9; O2SAT 100
[2020-11-14] MEDS: Morphine 4 MG/ML Syringe IV (20:44)
[2020-11-14] MEDS: 0.9% Saline Lock 10 ML Syringe IV (20:44)
[2020-11-14] MEDS: traZODone 100 MG Tablet PO (22:08)
[2020-11-15 00:52] VITALS: BP 101/72; PULSE 68; RESP 18; TEMP 36.6; O2SAT 100
[2020-11-15] MEDS: Morphine 4 MG/ML Syringe IV ×3 (00:55→09:54)
[2020-11-15] MEDS: 0.9% Saline Lock 10 ML Syringe IV ×2 (00:55→09:54)
[2020-11-15] MEDS: Phenobarbital 32.4 MG Tablet 64.8 MG PO ×2 (00:57→05:41)
[2020-11-15] MEDS: oxyCODONE 5 MG Tablet 10 MG PO ×2 (02:36→07:59)
[2020-11-15] MEDS: hydrOXYzine PAM 25 MG Capsule 50 MG PO ×2 (02:38→07:59)
[2020-11-15 05:35] VITALS: BP 98/67; PULSE 69; RESP 18; TEMP 37.1; O2SAT 100
[2020-11-15] MEDS: Sucralfate 1 GM Tablet PO (05:39)
[2020-11-15] MEDS: Folic Acid 1 MG Tablet PO (08:03)
[2020-11-15] MEDS: Thiamine Hydrochloride 100 MG Tablet PO (08:03)
[2020-11-15 08:06] VITALS: BP 120/75; PULSE 82; RESP 16; TEMP 36.8; O2SAT 100
[2020-11-15] MEDS: levETIRAcetam 500 MG Tablet PO (09:54)
[2020-11-15] MEDS: Pantoprazole Sodium 40 MG Tablet PO (09:54)
--- NOTE | 2020-11-15 10:07 | DCINST_ITS ---
Discharge Instructions Diet Discharge Diet: - ([place] diet. Advance as tolerated, slowly. No alcohol whatsoever.) Activity Discharge Activity: Return to Normal Activity Dressing / Incision Call your doctor if you observe: - (worsening abdominal pain) Follow Up Care Test Results: Test results from this visit will be discussed in further detail at your follow-up appointment, if applicable. Discharge Plan Admission Admit Date/Time: 11/12/20 19:57 Primary Reason for Your Visit: pancreatitis. alcohol withdrawal. Attending Provider: Michael Perez Discharge Orders/Prescriptions Prescriptions: New acetaminophen 500 mg Tablet 500 mg PO Q4H PRN PRN (Reason: Temp > 100.4 F) Qty: 0 RF: 0 dicyclomine 10 mg Capsule 20 mg PO Q6H PRN PRN (Reason: abdominal discomfort) Qty: 20 RF: 0 oxycodone 5 mg Tablet 5 mg PO Q4H PRN PRN (Reason: Pain Score 6-10) 3 Days Qty: 18 RF: 0 multivitamin Tablet 1 tab PO DAILY Qty: 30 RF: 0 omeprazole 20 mg tablet,delayed release (DR/EC) 20 mg PO DAILY Qty: 30 RF: 0 Continued levetiracetam [Keppra] 500 mg Tablet 500 mg PO BID RF: 0 albuterol 90 mcg/actuation Aerosol 1 - 2 mcg INHALATION PRN PRN (Reason: Shortness Of Breath) RF: 0 Referrals / Follow Up: FELICITAS TSAI [Other] - In 1 Week Friend,DO Ike [STAFF PHYSICIAN] - Within 1 Month (Gastroenterology for pancreatitis, suspected alcohol-induced.) Disposition Disposition (needs filled in before D/C Order can be placed): Home, Self Care
--- NOTE | 2020-11-15 10:16 | PCM.DC.SUM ---
Providers Date of Admission: 11/12/20 Primary Care Physician: FELICITAS TSAI Reason For Visit: ACUTE,GASTRODUODENITIS/ALCOHOLISM Diagnosis Discharge Diagnosis (1) Alcohol abuse with intoxication: Status: Acute Code(s): F10.129 - Alcohol abuse with intoxication, unspecified (2) Gastroduodenitis: Status: Acute Code(s): K29.90 - Gastroduodenitis, unspecified, without bleeding (3) Pancreatitis: Status: Acute Code(s): K85.90 - Acute pancreatitis without necrosis or infection, unspecified Qualifiers: Chronicity: acute Pancreatitis type: alcohol induced Acute pancreatitis complication: no infection or necrosis Qualified Code(s): K85.20 - Alcohol induced acute pancreatitis without necrosis or infection Medications at Discharge Home Medications albuterol 1 - 2 mcg INHALATION PRN PRN 11/12/20 levetiracetam [Keppra] 500 mg PO BID 11/12/20 acetaminophen 500 mg PO Q4H PRN PRN #0 tab 11/15/20 dicyclomine 20 mg PO Q6H PRN PRN #20 cap 11/15/20 multivitamin 1 tab PO DAILY #30 tab 11/15/20 omeprazole 20 mg PO DAILY #30 tab 11/15/20 oxycodone 5 mg PO Q4H PRN PRN 3 Days #18 tab 11/15/20 Hospital Course Operations None Procedures None Summary of Care Provided Minutes Spent on Discharge: 32 Hospital Course: 30-year-old female presents with abdominal pain and seeking treatment for alcohol withdrawal. Patient had drank 2 bottles of liquor before she came in. Patient was having abdominal pain. Patient later states that she has a history of pancreatitis but stated that she is was having the abdominal pain and then started drinking and stated that she was not drinking prior to the abdominal pain. Patient had imaging that was consistent with chronic pancreatitis, her lipase was normal. Ultrasound also confirmed chronic pancreatitis. Discussed with the patient that she will need to have further follow-up with gastroenterology in regards to his pancreatitis and that she needs to stop alcohol altogether. Patient did consent to having records release from [facility]. Information was only from November 26 and . Patient stated that she was hospitalized years prior for about 2 weeks. I did not have that information to review. Still give patient short course of oxycodone to help her with her abdominal pain. I did express concern given her history of alcoholism this that she understood my concern that she could lapse into having another addiction if she is not careful. Patient stated that she was unhappy with her primary care doctor. I told her to follow-up and then if she is unhappy to get another primary care provider as it would likely be. Time before she get established with someone new. Patient will be given information to follow-up with Dr. Eaton in the next month. From an alcohol withdrawal standpoint, patient had some tremors on the first day but has otherwise remained stable. Patient does give a varying history to different providers regards to her last alcohol but states that consistently that she does not drink every day. Patient will be just prescribed a multivitamin. Patient said that she is going to follow-up with alcoholics anonymous. Physical Exam Const alert General Appearance: cooperative Resp normal respiratory effort, no retractions, no use of accessory muscles and clear to auscultation bilaterally Cardio regular rate, regular rhythm, S1 normal heart sound and S2 normal heart sound GI normal to inspection, nondistended, normoactive bowel sounds and soft to palpation GI Narrative: epigastric tenderness. Extremity normal to inspection Medical Records Data Medical Nutrition Assessment Dietitian: Nutrition Therapy Diagnosis Start: 11/13/20 12:27 Freq: Status: Active Protocol: Document 11/13/20 12:46 MITZI (Rec: 11/13/20 12:47 [facility] [id number]) Nutrition Malnutrition Evidence of Malnutrition Exists Yes Malnutrition (severe): Acute Illness/Injury Evidenced By Suboptimal Energy Intake ( Severe),Weight Loss (Severe) Clinical Problem Acute Disease or Injury Related Malnutrition Etiology related to acute illness Signs/Symptoms as evidenced by <50% po intake x 4-5 days prior to admission and 8.3% wt loss x 3 weeks. Status Active Problem Recommendation Dietitian Recommendations/Changes Will provide ensure enlive w/ meals for increased nutrition if consumed. Weight / BMI Weight Weight: 56.2 kg Body Mass Index (BMI) 20.6 ABG / Lab / Microbiology Data Result Diagrams: 11/13/20 05:45 11/14/20 12:45 Laboratory: Laboratory Results - last 24 hr 11/14/20 12:45: Sodium 135 L, Potassium 4.6, Chloride 103, Carbon Dioxide 26.0, Anion Gap 6, BUN 5 L, Creatinine 0.63, Estim Creat Clear Calc 115.84, Est GFR (MDRD) Af Amer 142, Est GFR (MDRD) Non-Af 117, BUN/Creatinine Ratio 7.9 L, Glucose 92, Calcium 8.6 Microbiology: Microbiology 11/12/20 21:55 Mucosa - Nose SARS-CoV-2 Antigen (Rapid) - Final Radiography Diagnostic Testing: Radiology Impression Abdomen Ultrasound 11/14/20 09:24 IMPRESSION: 1. Increased echogenicity of the liver is nonspecific but most commonly associated with hepatic steatosis. Hepatomegaly. 2. Small heterogeneous pancreas with multiple calcifications correlating to chronic pancreatitis evident on prior CT. Electronically Signed: Brad Terry MD ([place]) at 14:18 EDT , Service support , D/C Instructions Discharge Diet: - ([place] diet. Advance as tolerated, slowly. No alcohol whatsoever.) Call your doctor if you observe: - (worsening abdominal pain) Meaningful Use Info Meaningful Use Diagnoses (Choose all that apply): None applicable Discharge Plan Admission Admit Date/Time: 11/12/20 19:57 Primary Reason for Your Visit: pancreatitis. alcohol withdrawal. Attending Provider: Michael Perez Discharge Orders/Prescriptions Prescriptions: New acetaminophen 500 mg Tablet 500 mg PO Q4H PRN PRN (Reason: Temp > 100.4 F) Qty: 0 RF: 0 dicyclomine 10 mg Capsule 20 mg PO Q6H PRN PRN (Reason: abdominal discomfort) Qty: 20 RF: 0 oxycodone 5 mg Tablet 5 mg PO Q4H PRN PRN (Reason: Pain Score 6-10) 3 Days Qty: 18 RF: 0 multivitamin Tablet 1 tab PO DAILY Qty: 30 RF: 0 omeprazole 20 mg tablet,delayed release (DR/EC) 20 mg PO DAILY Qty: 30 RF: 0 Continued levetiracetam [Keppra] 500 mg Tablet 500 mg PO BID RF: 0 albuterol 90 mcg/actuation Aerosol 1 - 2 mcg INHALATION PRN PRN (Reason: Shortness Of Breath) RF: 0 Referrals / Follow Up: FELICITAS TSAI [Other] - In 1 Week Friend,DO Ike [STAFF PHYSICIAN] - Within 1 Month (Gastroenterology for pancreatitis, suspected alcohol-induced.) Disposition Disposition (needs filled in before D/C Order can be placed): Home, Self Care Charges/Coding Visit Charges Inpatient E&M: 84360 Disch Hosp
[2020-11-15 11:23] VITALS: BP 112/81; PULSE 68; RESP 16; TEMP 36.9; O2SAT 99
== END 2020-11-15 12:55 | disposition home or self-care (01) | DRG 775 ==
LOC: ED 18:08 → MS3 20:50
PROVIDERS: Nurse Practitioner Family; Admitting Provider Internal Medicine; Emergency Provider Emergency Medicine
DX: F10.229 Alcohol dependence with intoxication, unspecified (principal); F10.239 Alcohol dependence with withdrawal, unspecified; K86.0 Alcohol-induced chronic pancreatitis; K29.90 Gastroduodenitis, unspecified, without bleeding; K85.20 Alcohol induced acute pancreatitis without necrosis or infection; J45.909 Unspecified asthma, uncomplicated; K21.9 Gastro-esophageal reflux disease without esophagitis; F17.210 Nicotine dependence, cigarettes, uncomplicated; Y90.8 Blood alcohol level of 240 mg/100 ml or more; E87.6 Hypokalemia; G40.909 Epilepsy, unspecified, not intractable, without status epilepticus; Z79.899 Other long term (current) drug therapy; Z86.16 Personal history of COVID-19; E43 Unspecified severe protein-calorie malnutrition; Z68.20 Body mass index [BMI] 20.0-20.9, adult
CPT/HCPCS: 36415; 74177; 76705; 80048; 80053; 80307; 81001; 82077; 83605; 83690; 83735; 84100; 84703; 85025; 87426; 93005; 94640; 97802; 99284; 99406; J7030; Q9967; A4216; J2405; J3490